=== PATIENT | female | born 1955 | race Two or more races ===

== ENCOUNTER 2016-11-04 02:12 | Inpatient (IN) | payer OTHER ==
[~2016-11-04] VITALS: Ht 172.7 cm; Wt 113.9 kg
[~2016-11-04 02:12] MED LIST: ALBU18 IN; ALBUAER3 IN; B-CO-6 PO; BUDESONIDE NEB; CARI-277 PO; CLON0.2D6 PO; HYDR-531 PO; LEVO500T3 PO; LORA-655 PO; LOSA100T27 PO; METO-158 PO; PANT40TA2 PO
[2016-11-04 02:54] LABS: Basophils # (auto) 0 uL; Basophils % (auto) 0.6 % (0.0-2.0); DEFINITIVE VIEW TRANSMISSION; Eosinophils # (auto) 0.2 uL; Hematocrit 31.9 % (36.0-46.0); Hemoglobin 10.5 g/dL (12.2-16.2); Lymphocytes # (auto) 1.7 uL; Mean Corpuscular Hemoglobin 26.8 pg (28.0-32.0); Mean Corpuscular Hgb Conc. 32.8 g/dL (32.0-36.0); Mean Corpuscular Volume 81.7 fL (80.0-100.0); Monocytes # (auto) 0.6 uL; Monocytes % (auto) 7.7 % (0.0-12.0); Neutrophils # (auto) 5.3 uL; Neutrophils % (auto) 67.7 % (37.0-80.0); Platelet Count (auto) 317 10^3/uL (140-450); Red Cell Distribution Width 15.6 % (11.6-16.0); White Blood Cell 7.9 10^3/uL (4.4-10.8)
[2016-11-04 03:25] LABS: Albumin 3.1 g/dL (3.4-5.0); Anion Gap 9 (5-15); Aspartate Aminotransferase 14 U/L (15-37); BUN/Creatinine Ratio 10.8; Blood Urea Nitrogen 12 mg/dL (7-18); Calcium 9.8 mg/dL (8.5-10.1); Carbon Dioxide 29 mmol/L (21-32); Chloride 102 mmol/L (98-107); GFR African American 64 mL/min; GFR Non-African American 53 mL/min; Glucose 117 mg/dL (74-106); Magnesium 2.1 mg/dL (1.6-2.6); Potassium 3.8 mmol/L (3.5-5.1); Sodium 140 mmol/L (136-145)
[2016-11-04 03:30] LABS: Alkaline Phosphatase 93 U/L (45-117); Bilirubin, Total 0.4 mg/dL (0.2-1.0); Total Protein 7.1 g/dL (6.4-8.2)
[2016-11-04] MEDS ORDERED: HYDROmorphone HCL 2 MG/ML VL IV ONE ×2 (04:45→07:15)
[2016-11-04] MEDS ORDERED: ONDANSETRON HCL 4 MG/2 ML VIAL IV ONE ×2 (04:45→07:15)
[2016-11-04] MEDS ORDERED: SODIUM CHLORIDE 0.9% 1,000 ML IV ONE (07:15)
[2016-11-04] MEDS ORDERED: metroNIDAZOLE 500MG/100ML 100 ML IV ONE (07:15)
[2016-11-04] MEDS ORDERED: cefTRIAXone 1GM/50ML D5W 50 ML IV ONE (07:15)
[2016-11-04 08:44] LABS: Urine Bilirubin Negative (Negative); Urine Blood Negative /uL (Negative); Urine Color Yellow (Yellow); Urine Glucose Normal (Normal); Urine Ketone Negative (Negative); Urine Mucus FEW (None Seen); Urine Nitrite POSITIVE (Negative); Urine RBC <1 /hpf (0 - 4); Urine Urobilinogen Normal (Negative); Urine pH 6.5 (5.0-8.0)
[2016-11-04] MEDS ORDERED: IBUP-1174 PO (09:36)
[2016-11-04] MEDS ORDERED: ZOLP12.564 PO (09:36)
[2016-11-04] MEDS ORDERED: LOR05T PO (09:36)
[2016-11-04] MEDS ORDERED: METO-281 PO (09:36)
[2016-11-04] MEDS ORDERED: ZOLP10TA PO (09:36)
[2016-11-04] MEDS ORDERED: BUPR300T28 PO (09:36)
[2016-11-04] MEDS ORDERED: QUET300T14 PO (09:39)
[2016-11-04] MEDS ORDERED: ACETAMINOPHEN 325 MG TAB PO PRN (09:45)
[2016-11-04] MEDS ORDERED: IBUPROFEN 400 MG TAB PO PRN (09:45)
[2016-11-04] MEDS ORDERED: NITROGLYCERIN 0.4 MG SL TAB SL PRN (09:45)
[2016-11-04] MEDS ORDERED: CARISOPRODOL 350 MG TAB PO PRN (09:45)
[2016-11-04] MEDS ORDERED: cloNIDine HCL 0.1 MG TAB PO PRN (09:45)
[2016-11-04] MEDS: SODIUM CHLORIDE 0.9% 1,000 ML IV SCH (09:50)
[2016-11-04] MEDS ORDERED: LORazepam 0.5 MG TAB PO PRN (10:00)
[2016-11-04] MEDS: buPROPion HCL 75 MG TAB PO SCH ×2 (10:20→18:37)
[2016-11-04] MEDS: PANTOPRAZOLE SODIUM 40 MG/10 ML VIAL IV SCH (10:20)
[2016-11-04] MEDS: FAMOTIDINE 20 MG TAB PO SCH ×2 (10:21→21:13)
[2016-11-04] MEDS: MULTIPLE VITAMIN TAB PO SCH (10:21)
[2016-11-04] MEDS: LOSARTAN POTASSIUM 50 MG TAB PO SCH (10:21)
[2016-11-04] MEDS: B-COMPLEX W/ C & FOLIC ACID(NEPHROVITE TAB) PO SCH (10:21)
[2016-11-04] MEDS: HYDROmorphone HCL 2 MG/ML VL IV PRN ×4 (10:22→22:44)
[2016-11-04] MEDS: IPRATROPIUM BROM 0.5 MG/2.5ML INH SOL NEB SCH ×2 (11:14→19:57)
[2016-11-04] MEDS: BUDESONIDE (INHALATION) 0.5 MG/2 ML NEB NEB SCH ×2 (11:14→19:57)
[2016-11-04] MEDS: ALBUTEROL SULF 2.5 MG/0.5ML(0.5%) NEB SOLN NEB SCH ×2 (11:14→19:57)
[2016-11-04] MEDS ORDERED: METOCLOPRAMIDE HCL 10 MG TAB PO SCH (11:30)
[2016-11-04] MEDS ORDERED: MILK OF MAGNESIA 30ML SUSP PO ONE (12:00)
[2016-11-04] MEDS ORDERED: MILK OF MAGNESIA 30ML SUSP PO PRN (12:00)
[2016-11-04 12:38] VITALS: BP 160/93
[2016-11-04 13:00] VITALS: BP 165/79
[2016-11-04] MEDS: metroNIDAZOLE 500MG/100ML 100 ML IV SCH ×2 (13:24→21:07)
[2016-11-04] MEDS: cloNIDine HCL 0.1 MG TAB PO SCH ×2 (13:24→21:15)
[2016-11-04] MEDS: ONDANSETRON HCL 4 MG/2 ML VIAL IV PRN ×2 (15:59→21:28)
[2016-11-04 17:00] VITALS: BP 145/76
[2016-11-04] MEDS: LORazepam 2MG/ML-1ML VIAL IV PRN (17:51)
[2016-11-04 20:00] VITALS: BP 151/90
[2016-11-04] MEDS: HYDROcodone-ACET 5/325MG TAB PO PRN (21:06)
[2016-11-04] MEDS: METOCLOPRAMIDE HCL 5MG/ml INJ 2ml VIAL IV SCH (21:13)
[2016-11-04] MEDS: QUEtiapine FUMARATE 100 MG TAB PO SCH (21:23)
[2016-11-04 22:00] VITALS: BP 151/90
[2016-11-05] VITALS (7 sets, daily range): BP systolic 133–165; BP diastolic 68–93
[2016-11-05] MEDS: SODIUM CHLORIDE 0.9% 1,000 ML IV SCH ×2 (02:14→19:59)
[2016-11-05] MEDS: HYDROmorphone HCL 2 MG/ML VL IV PRN ×4 (03:13→23:22)
[2016-11-05 04:55] LABS: Basophils # (auto) 0 uL; Basophils % (auto) 0.2 % (0.0-2.0); Eosinophils # (auto) 0.1 uL; Eosinophils % (auto) 1.7 % (0.0-7.0); Hematocrit 30.3 % (36.0-46.0); Hemoglobin 9.8 g/dL (12.2-16.2); Lymphocytes # (auto) 1.3 uL; Lymphocytes % (auto) 21.1 % (10.0-50.0); Mean Corpuscular Hemoglobin 27.3 pg (28.0-32.0); Mean Corpuscular Hgb Conc. 32.5 g/dL (32.0-36.0); Mean Corpuscular Volume 83.9 fL (80.0-100.0); Mean Platelet Volume 8.4 fL (7.4-10.4); Monocytes # (auto) 0.5 uL; Monocytes % (auto) 8.4 % (0.0-12.0); Neutrophils # (auto) 4.2 uL; Neutrophils % (auto) 68.6 % (37.0-80.0); Platelet Count (auto) 232 10^3/uL (140-450); Red Cell Distribution Width 15.7 % (11.6-16.0); White Blood Cell 6.1 10^3/uL (4.4-10.8)
[2016-11-05 05:11] LABS: Albumin 2.8 g/dL (3.4-5.0); Calcium 8.4 mg/dL (8.5-10.1); Potassium 3.8 mmol/L (3.5-5.1)
[2016-11-05 05:13] LABS: Bilirubin, Total 0.4 mg/dL (0.2-1.0); Total Protein 6.5 g/dL (6.4-8.2)
[2016-11-05] MEDS: metroNIDAZOLE 500MG/100ML 100 ML IV SCH ×3 (05:38→21:48)
[2016-11-05] MEDS: LORazepam 2MG/ML-1ML VIAL IV PRN ×3 (05:42→23:11)
[2016-11-05] MEDS: buPROPion HCL 75 MG TAB PO SCH ×2 (05:43→19:55)
[2016-11-05] MEDS: cloNIDine HCL 0.1 MG TAB PO SCH ×3 (05:44→21:50)
[2016-11-05] MEDS: HYDROcodone-ACET 5/325MG TAB PO PRN ×3 (05:50→19:55)
[2016-11-05] MEDS: ALBUTEROL SULF 2.5 MG/0.5ML(0.5%) NEB SOLN NEB SCH ×4 (06:19→19:14)
[2016-11-05] MEDS: IPRATROPIUM BROM 0.5 MG/2.5ML INH SOL NEB SCH ×4 (06:19→19:14)
[2016-11-05] MEDS: BUDESONIDE (INHALATION) 0.5 MG/2 ML NEB NEB SCH ×2 (06:20→19:14)
[2016-11-05] MEDS: METOCLOPRAMIDE HCL 5MG/ml INJ 2ml VIAL IV SCH ×4 (06:24→21:48)
[2016-11-05] MEDS: FAMOTIDINE 20 MG TAB PO SCH (10:08)
[2016-11-05] MEDS: PANTOPRAZOLE SODIUM 40 MG/10 ML VIAL IV SCH (10:08)
[2016-11-05] MEDS: cefTRIAXone 1GM/50ML D5W 50 ML IV SCH (10:08)
[2016-11-05] MEDS: B-COMPLEX W/ C & FOLIC ACID(NEPHROVITE TAB) PO SCH (10:09)
[2016-11-05] MEDS: MULTIPLE VITAMIN TAB PO SCH (10:09)
[2016-11-05] MEDS: LOSARTAN POTASSIUM 50 MG TAB PO SCH (10:10)
[2016-11-05] MEDS ORDERED: POLYETHYLENE GLYCOL 17GM PWDR PO ONE (14:00)
[2016-11-05] MEDS: ONDANSETRON HCL 4 MG/2 ML VIAL IV PRN ×2 (18:11→23:17)
[2016-11-05] MEDS: QUEtiapine FUMARATE 100 MG TAB PO SCH (21:50)
[2016-11-05] MEDS: POLYETHYLENE GLYCOL 17GM PWDR PO SCH (21:50)
[2016-11-06] VITALS (8 sets, daily range): BP systolic 118–155; BP diastolic 72–87
[2016-11-06] MEDS: HYDROcodone-ACET 5/325MG TAB PO PRN ×2 (00:57→18:26)
[2016-11-06] MEDS: HYDROmorphone HCL 2 MG/ML VL IV PRN ×4 (04:41→22:19)
[2016-11-06] MEDS: ONDANSETRON HCL 4 MG/2 ML VIAL IV PRN ×4 (04:41→22:19)
[2016-11-06] MEDS: cloNIDine HCL 0.1 MG TAB PO SCH ×3 (05:54→22:20)
[2016-11-06] MEDS: metroNIDAZOLE 500MG/100ML 100 ML IV SCH (05:55)
[2016-11-06] MEDS: IPRATROPIUM BROM 0.5 MG/2.5ML INH SOL NEB SCH ×3 (06:12→19:24)
[2016-11-06] MEDS: ALBUTEROL SULF 2.5 MG/0.5ML(0.5%) NEB SOLN NEB SCH ×3 (06:12→19:24)
[2016-11-06] MEDS: BUDESONIDE (INHALATION) 0.5 MG/2 ML NEB NEB SCH ×2 (06:13→19:24)
[2016-11-06] MEDS: METOCLOPRAMIDE HCL 5MG/ml INJ 2ml VIAL IV SCH ×4 (06:41→22:18)
[2016-11-06] MEDS: buPROPion HCL 75 MG TAB PO SCH ×2 (06:41→18:23)
[2016-11-06 06:53] LABS: Potassium 3.8 mmol/L (3.5-5.1)
[2016-11-06 06:57] LABS: Basophils # (auto) 0 uL; Basophils % (auto) 0.4 % (0.0-2.0); DEFINITIVE VIEW TRANSMISSION; Eosinophils # (auto) 0.1 uL; Eosinophils % (auto) 1.8 % (0.0-7.0); Hematocrit 30.9 % (36.0-46.0); Hemoglobin 10.2 g/dL (12.2-16.2); Lymphocytes # (auto) 1.4 uL; Lymphocytes % (auto) 23.6 % (10.0-50.0); Mean Corpuscular Hemoglobin 26.7 pg (28.0-32.0); Mean Corpuscular Hgb Conc. 32.9 g/dL (32.0-36.0); Mean Corpuscular Volume 81.1 fL (80.0-100.0); Mean Platelet Volume 8.1 fL (7.4-10.4); Monocytes # (auto) 0.4 uL; Monocytes % (auto) 7.3 % (0.0-12.0); Neutrophils # (auto) 3.9 uL; Neutrophils % (auto) 66.9 % (37.0-80.0); Platelet Count (auto) 312 10^3/uL (140-450); Red Cell Distribution Width 15.9 % (11.6-16.0); White Blood Cell 5.9 10^3/uL (4.4-10.8)
[2016-11-06 07:02] LABS: BUN/Creatinine Ratio 7.8; Calcium 8.8 mg/dL (8.5-10.1)
[2016-11-06] MEDS: LORazepam 2MG/ML-1ML VIAL IV PRN ×2 (07:24→20:48)
[2016-11-06] MEDS: MULTIPLE VITAMIN TAB PO SCH (08:59)
[2016-11-06] MEDS: B-COMPLEX W/ C & FOLIC ACID(NEPHROVITE TAB) PO SCH (08:59)
[2016-11-06] MEDS: PANTOPRAZOLE 40 MG TAB PO SCH (09:00)
[2016-11-06] MEDS: LOSARTAN POTASSIUM 50 MG TAB PO SCH (09:01)
[2016-11-06] MEDS: cefTRIAXone 1GM/50ML D5W 50 ML IV SCH (09:03)
[2016-11-06] MEDS: POLYETHYLENE GLYCOL 17GM PWDR PO SCH ×2 (09:08→22:00)
[2016-11-06] MEDS ORDERED: PIPERACILLIN-TAZOB 3.375GM 100 ML IV ONE (11:20)
[2016-11-06] MEDS ORDERED: PIPERACILLIN-TAZOB 3.375GM 100 ML IV SCH (12:00)
[2016-11-06] MEDS: ERTAPENEM 1GM IN NS 50 ML IV SCH (14:24)
[2016-11-06] MEDS: SODIUM CHLORIDE 0.9% 1,000 ML IV SCH (14:25)
[2016-11-06] MEDS: QUEtiapine FUMARATE 100 MG TAB PO SCH (22:00)
[2016-11-06] MEDS: TEMAZEPAM 15 MG CAP PO PRN (22:19)
[2016-11-07] VITALS (7 sets, daily range): BP systolic 125–156; BP diastolic 73–86
[2016-11-07] MEDS: HYDROcodone-ACET 5/325MG TAB PO PRN ×3 (00:12→15:56)
[2016-11-07] MEDS: DOCUSATE SOD 100 MG CAP PO PRN ×3 (02:36→21:21)
[2016-11-07] MEDS: ONDANSETRON HCL 4 MG/2 ML VIAL IV PRN ×4 (02:43→21:22)
[2016-11-07] MEDS: HYDROmorphone HCL 2 MG/ML VL IV PRN ×4 (02:43→21:22)
[2016-11-07] MEDS: SODIUM CHLORIDE 0.9% 1,000 ML IV SCH ×2 (04:17→21:24)
[2016-11-07] MEDS: LORazepam 2MG/ML-1ML VIAL IV PRN ×3 (04:48→22:31)
[2016-11-07] MEDS: cloNIDine HCL 0.1 MG TAB PO SCH ×3 (05:59→21:21)
[2016-11-07] MEDS: ALBUTEROL SULF 2.5 MG/0.5ML(0.5%) NEB SOLN NEB SCH ×4 (06:33→19:06)
[2016-11-07] MEDS: BUDESONIDE (INHALATION) 0.5 MG/2 ML NEB NEB SCH ×2 (06:33→19:07)
[2016-11-07] MEDS: IPRATROPIUM BROM 0.5 MG/2.5ML INH SOL NEB SCH ×4 (06:33→19:06)
[2016-11-07] MEDS: METOCLOPRAMIDE HCL 5MG/ml INJ 2ml VIAL IV SCH ×4 (06:42→21:22)
[2016-11-07] MEDS: buPROPion HCL 75 MG TAB PO SCH ×3 (06:42→18:08)
[2016-11-07] MEDS: B-COMPLEX W/ C & FOLIC ACID(NEPHROVITE TAB) PO SCH (09:25)
[2016-11-07] MEDS: MULTIPLE VITAMIN TAB PO SCH (09:25)
[2016-11-07] MEDS: PANTOPRAZOLE 40 MG TAB PO SCH (09:25)
[2016-11-07] MEDS: LOSARTAN POTASSIUM 50 MG TAB PO SCH (09:26)
[2016-11-07] MEDS: POLYETHYLENE GLYCOL 17GM PWDR PO SCH ×2 (10:00→21:23)
[2016-11-07] MEDS ORDERED: FAMOTIDINE (10MG/ML) 2ML VL IV ONE (11:15)
[2016-11-07] MEDS ORDERED: POLY33504 PO (11:15)
[2016-11-07] MEDS ORDERED: ONDA4TAB5 PO (11:18)
[2016-11-07 11:39] LABS: INR 1.06 (0.9-1.15); Prothrombin Time 11.4 sec (9.37-12.3)
[2016-11-07] MEDS: ERTAPENEM 1GM IN NS 50 ML IV SCH (12:47)
[2016-11-07] MEDS ORDERED: LIDOCAINE 1% HCL (LOCAL ANESTH.) INJ 20ML MDV ID ONE (20:15)
[2016-11-07] MEDS: FAMOTIDINE (10MG/ML) 2ML VL IV SCH (21:22)
[2016-11-07] MEDS: SODIUM CHLOR 0.9% PF (SALINE LOCK) 10ML VIAL IV SCH (21:23)
[2016-11-07] MEDS: QUEtiapine FUMARATE 100 MG TAB PO SCH (21:23)
[2016-11-07] MEDS: TEMAZEPAM 15 MG CAP PO PRN (22:50)
[2016-11-08] MEDS: HYDROmorphone HCL 2 MG/ML VL IV PRN ×2 (01:45→06:37)
[2016-11-08] MEDS: ONDANSETRON HCL 4 MG/2 ML VIAL IV PRN ×2 (01:46→06:38)
[2016-11-08 05:00] VITALS: BP 167/94
[2016-11-08] MEDS: IPRATROPIUM BROM 0.5 MG/2.5ML INH SOL NEB SCH ×3 (05:56→11:54)
[2016-11-08] MEDS: ALBUTEROL SULF 2.5 MG/0.5ML(0.5%) NEB SOLN NEB SCH ×3 (05:56→11:54)
[2016-11-08] MEDS: BUDESONIDE (INHALATION) 0.5 MG/2 ML NEB NEB SCH (06:00)
[2016-11-08] MEDS: LORazepam 2MG/ML-1ML VIAL IV PRN (06:37)
[2016-11-08] MEDS: cloNIDine HCL 0.1 MG TAB PO SCH ×2 (06:38→14:30)
[2016-11-08] MEDS: buPROPion HCL 75 MG TAB PO SCH ×2 (06:53→17:57)
[2016-11-08] MEDS: METOCLOPRAMIDE HCL 5MG/ml INJ 2ml VIAL IV SCH ×3 (06:53→17:00)
[2016-11-08 08:00] VITALS: BP 138/87
[2016-11-08 08:41] VITALS: BP 138/87
[2016-11-08] MEDS: LOSARTAN POTASSIUM 50 MG TAB PO SCH (10:00)
[2016-11-08] MEDS ORDERED: FAMOTIDINE (10MG/ML) 2ML VL IV SCH (10:00)
[2016-11-08] MEDS: POLYETHYLENE GLYCOL 17GM PWDR PO SCH (10:00)
[2016-11-08] MEDS: MULTIPLE VITAMIN TAB PO SCH (13:00)
[2016-11-08] MEDS: B-COMPLEX W/ C & FOLIC ACID(NEPHROVITE TAB) PO SCH (13:00)
[2016-11-08] MEDS ORDERED: GLYCERIN ADULT RECTAL SUPP PR ONE (13:00)
[2016-11-08 13:04] VITALS: BP 147/79
[2016-11-08] MEDS: ERTAPENEM 1GM IN NS 50 ML IV SCH (14:08)
[2016-11-08] MEDS: FAMOTIDINE (10MG/ML) 2ML VL IV SCH (14:08)
[2016-11-08] MEDS: SODIUM CHLOR 0.9% PF (SALINE LOCK) 10ML VIAL IV SCH (14:08)
[2016-11-08] MEDS: SODIUM CHLORIDE 0.9% 1,000 ML IV SCH (14:09)
[2016-11-08] MEDS: HYDROcodone-ACET 5/325MG TAB PO PRN (14:30)
[2016-11-08 16:48] VITALS: BP 141/72
== END 2016-11-08 18:45 | disposition home or self-care (01) | DRG 244 ==
LOC: ER 02:12 → EDBD 02:12 → TELE 02:13 → TELE-CENTR 11:05 → CENTRAL 11-07 17:55
PROVIDERS: ADMIT Internal Medicine; ATTEND Internal Medicine
DX: K57.32 Diverticulitis of large intestine without perforation or abscess without bleeding (principal); N17.0 Acute kidney failure with tubular necrosis; J80 Acute respiratory distress syndrome; K52.9 Noninfective gastroenteritis and colitis, unspecified; E44.0 Moderate protein-calorie malnutrition; N39.0 Urinary tract infection, site not specified; E66.01 Morbid (severe) obesity due to excess calories; E78.5 Hyperlipidemia, unspecified; N18.2 Chronic kidney disease, stage 2 (mild); K21.9 Gastro-esophageal reflux disease without esophagitis; Z68.38 Body mass index [BMI] 38.0-38.9, adult; B96.20 Unspecified Escherichia coli [E. coli] as the cause of diseases classified elsewhere
CPT/HCPCS: 36415; 36569; 51702; 71010; 74176; 80048; 80053; 81001; 82962; 83690; 83735; 84484; 85025; 85610; 87040; 87081; 87086; 87088; 87186; 93005; 94640; 96365; 96367; 96375; 96376; 97001; 99291; C9113; J0696; J1335; J2405; J2543; J3490